=== PATIENT | male | born 1955 | race Caucasian/White ===

== ENCOUNTER 2018-07-09 07:06 | Observation (INO) | payer OTHER ==
--- NOTE | 2018-07-09 07:40 | EDPHY ---
HPI/HX/ROS/PE/MDM Narrative: CHIEF COMPLAINT: Bleeding from 5-day-old wound HISTORY OF PRESENT ILLNESS: The patient is a 63 y/o male returning to the ED complaining of recurrent bleeding from a laceration on his right hand from an injury 5 days ago. He accidentally broke a stoneware cup on 07/04/18 causing a large laceration to his right hypothenar eminence. He presented to the ED at that time with persistent bleeding and required silver nitrate, Surgifoam, and 2 -layer closure for hemostasis. He was place in a dressing and Velcro splint and has been changing the dressing regularly at home. He reports significant pain in the two days following. Yesterday he briefly put pressure on his palm and had momentary burning pain at the site of the laceration, but denies further symptoms at that time. This morning he woke up at 05:45 and there was "blood everywhere." He applied a pressure dressing and has been able to control bleeding at time of assessment here. He denies any prior issues with bleeding and is not on anticoagulants. He does drink alcohol daily. No antibiotics. No fever, warmth, chills, chest pain, shortness of breath, palpitations, vomiting, diarrhea, urinary complaints, headache, lightheadedness. REVIEW OF SYSTEMS: Aside from elements discussed in the HPI, a comprehensive 10-point review of systems was reviewed and is negative. PAST MEDICAL HISTORY: Three shoulder surgeries. SOCIAL HISTORY: Drinks several alcoholic drinks every day, denies withdrawal symptoms if he stops drinking. Prior medical records reviewed including ED visit 07/04/18 for hand laceration. VITAL SIGNS: Reviewed by me GENERAL: Well-developed, well-nourished, resting comfortably in no respiratory distress. HEENT: Atraumatic. Eyes: No icterus, no injection. Mouth: moist mucous membranes. Neck: supple with no adenopathy. LUNGS: No distress. CARDIAC: Normal capillary refill. EXTREMITIES: Right hand: Significant swelling across palm, ecchymosis and hematoma underneath 3cm laceration along hypothenar eminence. Suture line is intact without oozing or active bleeding. Some dried blood present. Early ecchymosis along dorsum of hand with swelling across dorsum and proximal phalanxes. Pain with ROM of right fingers. Extremities otherwise atraumatic. NEURO: Alert and oriented, grossly nonfocal. SKIN: Warm and dry, no rash. PSYCHIATRIC: Normal mentation, no agitation. Portions of this note were transcribed by a neuropsychology medical consultant. I personally performed a history, physical exam, medical decision making, and confirmed accuracy of information the transcribed note. ED Course: This is a 63 y/o male who returns 5 days after a laceration closure to his right hypothenar eminence complaining of recurrent bleeding onset this morning. Bleeding is controlled upon assessment here. On exam, he has significant swelling across his right palm with ecchymosis and hematoma underneath a 3cm laceration along the hypothenar eminence and pain with ROM of his right fingers. Slight concern for infection due to erythema at the margins of his hematoma and on his right wrist; he is afebrile here. Recurrent bleeding may be related to daily alcohol use with resultant platelet abnormalities. Plan for IV , labs, right hand x-ray, 1gm IV Ancef, consult with hand surgery. X-ray shows soft tissue swelling and some unusual ossification in the hand. Spoke with hospitalist service. Dr. Shah accepts admission. 0911: Consulted with Dr. Ambrosio, hand surgeon. He will consult during admission. MDM: Differential diagnoses for the patient's symptom complex was considered including but not limited to retained foreign body, cellulitis, infected hematoma, compartment syndrome, coagulopathy, post injury bleeding. - Data Points Imaging Results: Imaging Impressions Hand X-Ray 07/09/18 07:38 Impression: 1. Soft tissue swelling 2. Metal foreign body in the thumb. 3. 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 Imaging: Discussed imaging studies w/ medical aides teacher Radiologist, I viewed and interpreted images myself Laboratory Results: Laboratory Results 07/09/18 07:40 07/09/18 07:40 07/09/18 07/09/18 07/09/18 07:40 07:40 07:40 WBC 3.12 10^3/uL L 10^3/uL (3.80-9.50) RBC 4.02 10^6/uL L 10^6/uL (4.40-6.38) Hgb 13.8 g/dL g/dL (13.7-17.5) Hct 39.5 % L % (40.0-51.0) MCV 98.3 fL fL (81.5-99.8) MCH 34.3 pg H pg (27.9-34.1) MCHC 34.9 g/dL g/dL (32.4-36.7) RDW 12.2 % % (11.5-15.2) Plt Count 144 10^3/uL L 10^3/uL (150-400) MPV 9.3 fL fL (8.7-11.7) Neut % (Auto) 55.5 % % (39.3-74.2) Lymph % (Auto) 22.1 % % (15.0-45.0) [place] % (Auto) 9.3 % % (4.5-13.0) Eos % (Auto) 12.8 % H % (0.6-7.6) Baso % (Auto) 0.3 % % (0.3-1.7) Nucleat RBC Rel Count 0.0 % % (0.0-0.2) Absolute Neuts (auto) 1.73 10^3/uL 10^3/uL (1.70-6.50) Absolute Lymphs (auto) 0.69 10^3/uL L 10^3/uL (1.00-3.00) Absolute Monos (auto) 0.29 10^3/uL L 10^3/uL (0.30-0.80) Absolute Eos (auto) 0.40 10^3/uL 10^3/uL (0.03-0.40) Absolute Basos (auto) 0.01 10^3/uL L 10^3/uL (0.02-0.10) Absolute Nucleated RBC 0.00 10^3/uL 10^3/uL (0-0.01) Immature Gran % 0.0 % % (0.0-1.1) Immature Gran # 0.00 10^3/uL 10^3/uL (0.00-0.10) PT 12.2 SEC SEC (12.0-15.0) INR 0.88 (0.83-1.16) Sodium 143 mEq/L mEq/L (135-145) Potassium 4.6 mEq/L mEq/L (3.3-5.0) Chloride 110 mEq/L mEq/L (97-110) Carbon Dioxide 23 mEq/l mEq/l (22-31) Anion Gap 10 mEq/L mEq/L (8-16) BUN 14 mg/dL mg/dL (7-23) Creatinine 0.8 mg/dL mg/dL (0.7-1.3) Estimated GFR > 60 Glucose 86 mg/dL mg/dL (70-100) Calcium 8.5 mg/dL mg/dL (8.5-10.4) Total Bilirubin 0.4 mg/dL mg/dL (0.1-1.4) Conjugated Bilirubin 0.2 mg/dL mg/dL (0.0-0.5) Unconjugated Bilirubin 0.2 mg/dL mg/dL (0.0-1.1) AST 50 IU/L IU/L (17-59) ALT 45 IU/L IU/L (21-72) Alkaline Phosphatase 56 IU/L IU/L (38-126) Total Protein 6.5 g/dL g/dL (6.3-8.2) Albumin 3.5 g/dL g/dL (3.5-5.0) Ethyl Alcohol 38 mg/dL H mg/dL (0-10) Medications Given: Sodium Chloride (Ns) 1,000 mls @ 100 mls/hr IV CONT RIAN Stop: 01/05/19 10:14 Last Admin: 07/09/18 11:09 Dose: 1,000 mls Cefazolin Sodium/Dextrose (Ancef 2 Gm) 100 mls @ 200 mls/hr IV Q8HRS RIAN PRN Reason: Protocol Stop: 08/08/18 13:59 Last Admin: 07/09/18 15:17 Dose: 100 mls Discontinued Medications Cefazolin Sodium/Dextrose (Ancef 1 Gm (Premix)) 50 mls @ 200 mls/hr IV EDNOW ONE PRN Reason: Protocol Stop: 07/09/18 07:52 Last Admin: 07/09/18 07:48 Dose: 50 mls General Initial Vital Signs: Initial Vital Signs Temperature (C) 36.6 C 07/09/18 07:13 Heart Rate 64 07/09/18 07:13 Respiratory Rate 18 07/09/18 07:13 Blood Pressure 111/77 07/09/18 07:13 O2 Sat (%) 97 07/09/18 07:13 O2 Delivery Mode Room Air Allergies/Adverse Reactions: melon Allergy (Verified 07/09/18 09:29) Throat Closes meperidine [From Demerol] Allergy (Verified 07/09/18 09:29) Hives cilantro Allergy (Uncoded 07/09/18 09:29) Throat Closes Home Medications: Medication Instructions Recorded Cephalexin [Keflex (*)] 500 mg PO Q6H #40 cap 07/09/18 Ibuprofen/Oxycodone HCl 1 each PO Q6 PRN #20 tablet 07/09/18 [Oxycodone-Ibuprofen 5-400 Tab] Departure - Departure Disposition: [facility] Inpatient Acute Clinical Impression: Bleeding Hand laceration Qualifiers: Encounter type: subsequent encounter Foreign body presence: without foreign body Laterality: right Qualified Code(s): S61.411D - Laceration without foreign body of right hand, subsequent encounter Condition: Fair Report Scribed for: Estefanía Mcdowell Report Scribed by: Jessi Roblero Date of Report: 07/09/18 Time of Report: 07:17
[2018-07-09 07:54] LABS: PLATELET COUNT 144 10^3/uL (150-400)
[2018-07-09 08:02] LABS: INR 0.88 (0.83-1.16); PROTIME(PATIENT) 12.2 SEC (12.0-15.0)
[2018-07-09] MEDS ORDERED: ONDANSETRON 4 MG/2 ML VIAL IVP PRN (10:15)
[2018-07-09] MEDS ORDERED: ACETAMINOPHEN 325 MG TAB PO PRN (10:15)
[2018-07-09] MEDS ORDERED: NS 1,000 ML IV SCH (10:15)
[2018-07-09] MEDS ORDERED: ONDANSETRON DISINTEGRATING 4 MG TAB PO PRN (10:15)
[2018-07-09] MEDS ORDERED: HYDROmorphONE/DILAUDID 1 MG/ML INJ IVP PRN (10:29)
--- NOTE | 2018-07-09 11:04 | GHP ---
[f rep st] HISTORY AND PHYSICAL DATE OF ADMISSION: 07/09/2018 The patient is a pleasant 63-year-old gentleman with a minimal past medical history, who was seen in the hospital 2 days ago for a hand laceration. A ceramic goblet had broken and lacerated his thenar eminence of his right hand. 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 He returned home, and then last night he developed some bleeding. It is notable he had two-layer hemostasis with silver nitrat e and Surgifoam at the time of presentation. There was no film at that time. The wound was explored with a gloved hand. He woke up this morning and there was blood everywhere. He has been taking ibu profen frequently, but no aspirin. He does not take anticoagulants. He has no known bleeding proble ms. 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 His coags were normal here. He does acknowledge daily alcohol and had a positive blood alcohol level this morning, but does not have known liver disease and his liver function tests are normal here. REVIEW OF SYSTEMS: A complete 10-point review of systems conducted, negative except as noted in the HPI. PAST MEDICAL HISTORY: Numerous lacerations. SOCIAL HISTORY: No tobacco. No drugs. Drinks a few drinks a day. Lives between [place]. 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 FAMILY HISTORY: Reviewed and unremarkable. PHYSICAL EXAMINATION: VITAL SIGNS: Temp 36.6, blood pressure 111/77, pulse pulse 64, breathing 18 t imes a minute, 97% on room air. GENERAL: No acute distress. Looks younger than his stated age. HE ENT: Sclerae anicteric. Oropharynx clear. Mucous membranes moist. NECK: Supple without lymphaden opathy or JVD. LUNGS: Clear to auscultation bilaterally. HEART: S1, S2. Not tachycardic. ABDOME N: Soft, nontender, nondistended. LOWER EXTREMITIES: No edema. Calves are nontender. SKIN: With out rash. His right upper extremity, he has an edematous laceration without purulent drainage on his thenar eminence. There is no lymphangitic streaking. He has no pain with flexion, extension of the thumb. He has pain in his thenar eminence, but not in his forearm, either dorsal or ventral. Hand films show soft tissue swelling and small radiopaque foreign body. I discussed the case with Dr. Estefanía Mcdowell. ASSESSMENT/PLAN: A 63-year-old gentleman with a recent hand laceration, retained foreign body and bl eeding. 1. Bleeding. The patient has normal coags. I suspect he has some platelet dysfunction given his ib uprofen use. He is not bleeding now. If he continues to bleed, we can give him some platelets. For now, we will continue the dressing as it. 2. Retained foreign body. This likely represents a ceramic fragment with metallic glaze. 3. Hand Surgery has been consulted. I suspect he likely needs a surgical exploration. Given the re tained foreign body, we will treat him with cefazolin 1 g q.8. 4. Alcohol use. The patient has a positive blood alcohol level at 7:40 in the morning, indicating h is alcohol use is probably heavier than he is acknowledging. It is unclear the role that it is havin g in this presentation. He is probably, potentially at risk for alcohol withdrawal. 5. Mild pancytopenia. He has a white count of 3, slightly low platelets of 144. This may be alcoho l use or other unrelated things. DISPOSITION: Observation status. /[id number]/MODL
--- NOTE | 2018-07-09 12:57 | SOAPPROG ---
SOAP Progress Note Assessment/Plan: Assessment/Plan: R hand laceration -non-operative management at this time, no inpatient needs, can advance diet -Cont IV Ancef while in house, recommend PO abx treatment on discharge -NWB to RUE, ok for light hand/finger ROM, no significant pushing, pulling, lifting, twisting or carrying activities -Cont ice and elevation -Wound redressed, compression wrap applied -Ok to d/c from hand surgery standpoint -F/u w/ Dr. Ambrosio in 7 days 07/09/18 12:54 Subjective: Consult note dictated. Objective: Vital Signs Temp Pulse Resp BP Pulse Ox 36.8 C 79 16 116/71 93 07/09/18 12:00 07/09/18 12:00 07/09/18 12:00 07/09/18 12:00 07/09/18 12:00 PT 12.2 SEC (12.0-15.0) 07/09/18 07:40 INR 0.88 (0.83-1.16) 07/09/18 07:40 Please see consult note. ICD10 Worksheet Patient Problems: Problems Problem Status Onset Bleeding Acute Hand laceration Acute
[2018-07-09] MEDS ORDERED: ceFAZolin 2 GM/DEXTROSE 100 ML IV SCH (14:00)
--- NOTE | 2018-07-09 14:10 | GCON ---
[f rep st] CONSULTATION ORTHOPEDIC HAND SURGERY CONSULTATION. DATE OF CONSULTATION: 07/09/2018 CHIEF COMPLAINT: Right hand laceration. HISTORY OF PRESENT ILLNESS: Jean Carlos is a pleasant 63-year-old male, who is currently an inpatient at [facility] for evaluation of a right hand injury. He states that he initially injured his right hand approximately 5 days ago, when he actually broke a stoneware cup on 07/04/2018, causing a large laceration to the right hypothenar eminence. He subsequently presented to the [facility] emergency department with a persistent bleeding and required treatment with silver nitrate, Surgifoam, and a two-layer closure for hemostasis. At that time, he was placed in a dressing and a Velcro splint was applied. The patient had been complaining of dressing changes at home; however, noted significant increase in his pain over the last 2 days, also noting that yesterday he may have put pressure on his palm describing a momentary burning pain at the site of his laceration. Earlier this morning, the patient reports he woke up at approximately 5:45 to significant bleeding from his right hand. He was able to apply a pressure dressing, but was unsuccessfully able to control his bleeding. He subsequently presented to the emergency room again. He denies any prior issues with his bleeding, and is not currently on any anticoagulation medication. He does note that he drinks alcohol daily, but denies any additional drug use. Today, the patient states that he has had a persistent subjective numbness and tingling in his 4th and 5th digits, present since his initial injury. He reports that radiographs were not taken at his initial visit in the emergency room. He localizes pain over the ulnar aspect of his palm, and notes that he is able to flex and extend his fingers without significant discomfort, though does note some significant discomfort with light composite fist, noting that pressure over his hypothenar eminence exacerbates this pain. He denies any subsequent injury to his right hand, as well as any signs of infection, including increased erythema, discharge , or induration, or constitutional symptoms such as fevers, chills, nausea, vomiting. 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 He has no additional concerns or complaints at this time. PAST MEDICAL HISTORY: The patient has a past medical history significant for numerous lacerations. He also has an orthopedic history including numerous shoulder injuries, which he has had surgery on, as well as a history of fracture in his right hand, noting a fracture treated conservatively on the ulnar aspect. No additional contributory family history is reported today. SURGICAL HISTORY: This is significant for 3 previous shoulder surgeries. No additional past surgical history is reported. CURRENT MEDICATIONS: Please see EMR for a detailed list, though the patient reports he takes ibuprofen 600 mg for current injury. He denies any additional past medication or supplement use. ALLERGIES: Patient reports an allergy to melon, which causes significant swelling, including throat closure, as well as cilantro, which causes similar reaction. He also reports an allergy to meperidine, which has caused hives in the past. The patient reports no additional allergies to medications. SOCIAL HISTORY: Patient denies any current tobacco use, recreational drug use. The patient notes he drinks alcohol daily. 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 ROS: A 10 point review of systems was reviewed today with no additional concerns, complaints or abnormal findings not noted in the HPI or PMH. FAMILY HISTORY: No significant contributory family history is reported today. PHYSICAL EXAMINATION: VITAL SIGNS: Height is 185.42 cm, weight is 72.57 kg, blood pressure 116/71, HR 79 BPM, RR of 16/min, O2 saturation at 93% on RA, temperature 36.8 degrees Celsius. GENERAL: Healthy-appearing male, NAD. HEENT: NC/AT, EOMI. Ears and nares are patent without discharge. OP is clear. NECK: Supple, trachea midline, no cervical LAD. RESPIRATORY: CTAB, no increased WOB noted. CARDIOVASCULAR: RRR, no M/C/G/R. ABDOMEN: Soft, NT/ND. MUSCULOSKELETAL: Examination of the right hand reveals intact dressing. This was removed revealing a longitudinal laceration over the hypothenar eminence, closed with simple sutures. Signs of ecchymosis and slightly edematous areas noted over the middle 3rd of this laceration. The laceration site is without surrounding erythema, calor, discharge or induration. No lymphangitic streaking is noted. The patient is able to flex and extend digits 4 and 5 without significant difficulty, getting out full extension, as well as flexion to approximately 105 degrees, limited by discomfort. The patient has a largely intact 2-point light touch discrimination in the 4th and 5th digits, somewhat decreased dorsally. The patient is intact to light touch sensation otherwise in the median and radial nerve distributions. The patient is able to flex and extend digits 1-3 WNL. Thumb is NTTP, with no open wound or surrounding erythema, calor, discharge or induration at his foreign body site. The remainder of the right hand exam reveals NTTP of the distal radius and ulna, carpals, metacarpals 1-3, and digits 1-5. Radial and ulnar pulses are intact and equal compared bilaterally. DNVI BUE. Examination of the lower legs reveals no significant swelling, dislocation or deformity. SCDs are in place and pumping. Posterior calves are NTTP, no palpable vascular cords, negative Homans bilaterally. The patient is able to flex and extend his ankle, foot and toes, WNL. DNVI BLE. SKIN: Please see above dictation concerning right hand. No additional rashes or lesions are noted. NEUROLOGIC: A and O x3. Speech is noted to be fluid and fluent. PSYCH: Pleasant, cooperative with today's exam. Affect normal. RADIOGRAPHS: Three views of the right hand are reviewed today showing a retained foreign body of the thumb. This is likely old in nature, as it does not communicate with the patient's current laceration. Soft tissue swelling is noted. There is also what is likely heterotrophic ossification between the second and 3rd metacarpal shafts. Again this is unlikely to be any retained bodies from the current laceration due to its location. Minimal osteoarthritic changes are noted. No signs of demineralization or periosteal reaction to suggest osteomyelitis. ASSESSMENT: Right hand laceration. Possible concern for nerve injury. PLAN: This patient's case and radiographs were reviewed with Dr. Ambrosio today, who also examined the patient today. At this time, Dr. Ambrosio does not feel that Mr. Toro has any conditions that would warrant continued inpatient status. There is no surgical emergency related to the right hand at this time. He likely had a hematoma which self-evacuated overnight, causing his increase in bleeding. He has been advised to continue to keep his wound dressed, and clean and dry at all times. He is also to use a light compression wrap to hopefully prevent the redevelopment of hematoma. He is to watch for signs of infection, including significant erythema, calor, discharge or induration, or constitutional symptoms such as fevers, chills, nausea, vomiting. We have recommended to the medicine service that the patient be placed on p.o. antibiotics prophylactically upon discharge. Activity restrictions were also reviewed with the patient, including avoidance of significant pushing, pulling, lifting, twisting or carrying activities, as well as again keeping his incision site clean and dry. The patient will follow up with Dr. Ambrosio in 7 days as an outpatient for likely a suture removal and repeat assessment. At that time, should he continue to have decreased sensation, he will be evaluated for any additional surgical intervention needed. All the patient's questions have been answered today, and his concerns addressed. He has relayed his understanding of the current care plan and education presented, and appears pleased with the care he has received today. /[id number]/MODL MTDD
[2018-07-09 16:30] VITALS: BP 122/74
--- NOTE | 2018-07-09 17:27 | GDS ---
[f rep st] DISCHARGE SUMMARY DISCHARGE DIAGNOSES: Recent thumb laceration with bleeding. Please see admission history and physical by Dr. Aristeo Shah as well as consultation by Aristides miller and progress notes by Mario Ambrosio. The patient presented with bleeding that happened several da ys following a laceration. He had films showing a possible foreign body. This was felt to not be a foreign body by Dr. Ambrosio, likely heterotopic ossification. He had normal coags, modestly low platele ts. Had been taking a fair amount of ibuprofen. Hemostasis was achieved. He has plan for followup with Dr. Ambrosio. He was given a prescription for Keflex given the significant hematoma, as well as ibu profen/oxycodone. He was advised to take less than 2400 mg of ibuprofen daily. /[id number]/MODL
== END 2018-07-09 17:03 | disposition home or self-care (01) ==
LOC: SUPCPDRO 07:06 → F3E 10:24
PROVIDERS: ADMIT Internal Medicine; ATTEND Internal Medicine
DX: S61.411D Laceration without foreign body of right hand, subsequent encounter (principal)
CPT/HCPCS: 73130; 96365; 96376; 99285; G0378; J0690; L3984; G0480